=== PATIENT | female | born 1965 | race African-American/Black ===

== ENCOUNTER 2018-03-11 11:37 | Emergency (ER) | payer OTHER ==
[~2018-03-11] VITALS: Ht 167.6 cm; Wt 87.1 kg
[~2018-03-11 11:37] MED LIST: 'TENORMIN50 MG PO; AMITRIPTYLINE H10 MG PO; AMITRIPTYLINE10 MG PO; ANAPROX DS550 MG PO; ATENOLOL50 MG PO; AUGMENTIN 875 M1 TA1 PO; AUGMENTIN 875875 MG PO; BACTRIM DS 8001 TA1 PO; BACTROBAN OINT22 GM PO; CELEXA20 MG PO; CIPROFLOXACIN500 MG PO; CITALOPRAM HYDR40 MG PO; CLARITIN-D 10 M1 T21 PO; CLARITIN10 MG PO; CLINDAMYCIN HC300 MG PO; COMPAZINE10 MG PO; CORDROL20 MG PO; CYCLOBENZAPRINE10 MG PO; FLAGYL500 MG PO; FLEXERIL10 MG PO; FLONASE 0.05% 121 EA NAS; Fioricet 325 MG1 TAB PO; HYDROCODONE BIT1 T11 PO; KEFLEX500 MG PO; KETOROLAC10 MG PO; MEDROL DOSEPAK4 MG PO; MIDRIN (DURADR1 CAP PO; MIDRIN 325 MG-11 CA1 PO; MOTRIN800 MG PO; NAPROSYN500 MG PO; NATURE'S BLEND F1 MG PO; NEURONTIN300 MG PO; NKHM; NO DAILY MEDS; NORCO 325 MG-101 TAB PO; ORAXYL20 MG PO; PERCOCET 325 MG1 TA2 PO; PERCOCET 325 MG1 TA5 PO; PHENERGAN25 M1 PO; PREDNICOT20 MG PO; PRILOSEC20 MG PO; TORADOL10 MG PO; TRAMADOL HCL50 MG PO; Tessalon Perle100 MG PO; ULTRAM50 MG PO; VICODIN 5/500 505 MG PO; VICODIN ES 7501 TAB PO; ZITHROMAX Z PA250 MG PO; ZITHROMAX1 GM/PACKE PO; ZITHROMAX250 MG PO; [UNRECOGNIZED DRUG - OTHER]
[2018-03-11] MEDS ORDERED: ERYTHROMYCIN OPH1 GM OPH (12:53)
== END 2018-03-11 13:21 | disposition home or self-care (01) ==
LOC: ED 11:37
DX: H00.011 Hordeolum externum right upper eyelid (principal); Z88.6 Allergy status to analgesic agent; Z79.899 Other long term (current) drug therapy

== ENCOUNTER 2020-08-31 17:35 | Emergency (ER) | payer OTHER ==
[~2020-08-31] VITALS: Ht 167.6 cm; Wt 89.8 kg
[~2020-08-31 17:35] MED LIST changes: +ERYTHROMYCIN OPH1 GM OPH
[2020-08-31] MEDS ORDERED: CEPHALEXIN500 M1 PO (18:38)
== END 2020-08-31 18:50 | disposition home or self-care (01) ==
LOC: ED 17:35
DX: L03.032 Cellulitis of left toe (principal); Z88.6 Allergy status to analgesic agent; Z79.2 Long term (current) use of antibiotics; Z79.899 Other long term (current) drug therapy; Z98.890 Other specified postprocedural states; Z90.49 Acquired absence of other specified parts of digestive tract; Z98.51 Tubal ligation status